=== PATIENT | male | born 1970 | race African-American/Black ===

== ENCOUNTER 2020-04-27 23:31 | Emergency (ER) | payer SELFPAY ==
--- NOTE | 2020-04-27 23:52 | EDM.PDOC ---
<Massimo Don - Last Filed: 04/28/20 07:08> ED HPI GENERAL MEDICAL PROBLEM - General Chief Complaint: Neurological Problem Stated Complaint: DIZZY Time Seen by Provider: 04/27/20 23:49 - History of Present Illness INITIAL COMMENTS - FREE TEXT/NARRATIVE: 49-year-old male presents the emergency room with severe nausea vomiting and dizziness. He had some dizziness that started yesterday this progressively got worst day and now is having pretty significant nausea and vomiting associated with the dizziness. Initially when I saw the patient he was too nauseated and vomiting frequent to really get much of a history from or do an exam on. After he received some Zofran he did notice that when he turns his head to the right it makes his situation much worse. Turning to the left does not seem to cause any difficulty form. The patient has never had an episode like this. Patient denies any significant past medical history. 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 - Related Data Allergies Allergy/AdvReac Type Severity Reaction Status Date / Time No Known Allergies Allergy Verified 04/28/20 00:12 Home Meds: Home Meds . [No Known Home Meds] 04/28/20 [History] ED ROS GENERAL - Review of Systems Review Of Systems: See Below Constitutional: Denies: Fever, Chills HEENT: Reports: Vertigo. Denies: No Symptoms, Ear Pain Respiratory: Reports: No Symptoms Cardiovascular: Reports: No Symptoms Endocrine: Reports: No Symptoms GI/Abdominal: Reports: Nausea, Vomiting. Denies: No Symptoms, Abdominal Pain, Constipation, Diarrhea : Reports: No Symptoms Musculoskeletal: Reports: No Symptoms Skin: Reports: No Symptoms Neurological: Reports: Dizziness. Denies: Headache, Numbness, Syncope, Tremors Psychiatric: Reports: No Symptoms ED EXAM, NEURO - Physical Exam Exam: See Below Exam Limited By: No Limitations General Appearance: Other (Doing much better after receiving Zofran initially he had frequent episodes of small-volume emesis mostly whitish material he did admit to drinking milk before he came in) Eye Exam: Bilateral Eye: Normal Inspection Ears: Normal External Exam, Normal Canal, Hearing Grossly Normal, Normal TMs (Minimal pressure behind the right tympanic membrane), Other (The patient has some discomfort behind the right ear without evidence of swelling or mass and palpation does not seem to make the discomfort worse.) Nose: Normal Inspection, Normal Mucosa, No Blood Throat/Mouth: Normal Inspection, Normal Lips, Normal Teeth, Normal Gums, Normal Oropharynx, Normal Voice, No Airway Compromise Head Exam: Atraumatic, Normocephalic Neck: Normal Inspection, Supple, Non-Tender, Full Range of Motion Respiratory/Chest: No Respiratory Distress, Lungs Clear, Normal Breath Sounds Cardiovascular: Regular Rate, Rhythm, No Edema, No Murmur GI/Abdominal: Normal Bowel Sounds, Soft, Non-Tender Neurological: Alert, No Motor/Sensory Deficits, Oriented x 3 Back Exam: Normal Inspection. No: CVA Tenderness (L), CVA Tenderness (R) Skin Exam: Warm, Dry, Intact Course - Re-Assessments/Exams Free Text/Narrative Re-Assessment/Exam: 04/28/20 02:16 The patient was given some Zofran initially when he came in and this did help some but now he believes the dizziness is getting worse. We will try meclizine. Laboratory evaluation show he is developing a lymphocytosis on his CBC suggestive of a viral type response. Chemistries show a low potassium of 3.1 we will start some IV potassium as I do not believe oral would be tolerated. Other testing such as Hallpike's would not be tolerated at this point. 04/28/20 04:36 Patient thinks he is doing better he is still dizzy but he thinks it is improving 04/28/20 07:09 We attempted to ambulate the patient about 30 minutes ago the patient was unsteady he did make it about 25 feet became fatigued we turned around to the mid back. Immediately after returning he started vomiting. He has had 2 doses of Zofran 2 doses of meclizine we will attempt a low-dose benzodiazepine, lorazepam 0.5 mg IV. The patient has had 3 10 mEq bags of potassium chloride. The fourth is being started at this time. At this time the patient is not ready to go home his diagnosis is still in question. Consider MRI when MRI is available. At this point his change of shift further care and disposition per Dr. Butler. Departure - Departure Disposition: DC/Tfer to [facility] 02 Clinical Impression: Intracranial hemorrhage, Nystagmus, Vertigo Hypertension Qualifiers: Hypertension type: unspecified Qualified Code(s): I10 - Essential (primary) hypertension - Discharge Information Referrals: PCP,None [Primary Care Provider] - Forms: ED Department Discharge <Octavio Butler - Last Filed: 04/28/20 11:20> ED HPI GENERAL MEDICAL PROBLEM Right Posterior Ear Pain Score (Numeric/FACES): 1 Right Lower Abdominal Pain Score (Numeric/FACES): 8 Course - Vital Signs Last Recorded V/S: Last Vital Signs Temp 97.7 F 04/28/20 07:14 Pulse 74 04/28/20 09:47 Resp 16 04/28/20 09:47 BP 160/113 H 04/28/20 09:47 Pulse Ox 95 04/28/20 09:47 - Orders/Labs/Meds Orders: Active Orders 24 hr Category Date Time Status CORONAVIRUS COVID-19 NOEMI [MOLEC] Stat Lab 04/28/20 10:40 Received Sodium Chloride 0.9% [Normal Saline] 1,000 ml Med 04/28/20 02:30 Active IV ASDIRECTED Medication Orders Sodium Chloride (Normal Saline) 1,000 mls @ 100 mls/hr IV ASDIRECTED VIRIDIANA Last Admin: 04/28/20 02:29 Dose: 100 mls/hr Documented by: FIORDALIZA Labs: Laboratory Tests 04/27/20 04/27/20 Range/Units 23:50 23:50 WBC 7.37 (4.23-9.07) K/mm3 RBC 4.85 (4.63-6.08) M/mm3 Hgb 14.8 (13.7-17.5) gm/dl Hct 43.3 (40.1-51.0) % MCV 89.3 (79.0-92.2) fl MCH 30.5 (25.7-32.2) pg MCHC 34.2 (32.2-35.5) g/dl RDW Std Deviation 40.2 (35.1-43.9) fL Plt Count 190 (163-337) K/mm3 MPV 12.7 H (9.4-12.3) fl Neut % (Auto) 25.5 L (34.0-67.9) % Lymph % (Auto) 63.5 H (21.8-53.1) % [place] % (Auto) 9.1 (5.3-12.2) % Eos % (Auto) 1.2 (0.8-7.0) Baso % (Auto) 0.3 (0.1-1.2) % Neut # (Auto) 1.88 (1.78-5.38) K/mm3 Lymph # (Auto) 4.68 H (1.32-3.57) K/mm3 [place] # (Auto) 0.67 (0.30-0.82) K/mm3 Eos # (Auto) 0.09 (0.04-0.54) K/mm3 Baso # (Auto) 0.02 (0.01-0.08) K/mm3 Sodium 139 (136-145) mEq/L Potassium 3.1 L (3.5-5.1) mEq/L Chloride 103 (98-107) mEq/L Carbon Dioxide 25 (21-32) mEq/L Anion Gap 14.1 (5-15) BUN 17 (7-18) mg/dL Creatinine 1.2 (0.7-1.3) mg/dL Est Cr Clr Drug Dosing 71.15 mL/min Estimated GFR (MDRD) > 60 (>60) mL/min BUN/Creatinine Ratio 14.2 (14-18) Glucose 140 H (74-106) mg/dL Calcium 9.2 (8.5-10.1) mg/dL Total Bilirubin 0.3 (0.2-1.0) mg/dL AST 24 (15-37) U/L ALT 23 (16-63) U/L Alkaline Phosphatase 104 (46-116) U/L Total Protein 8.6 H (6.4-8.2) g/dl Albumin 4.3 (3.4-5.0) g/dl Globulin 4.3 gm/dL Albumin/Globulin Ratio 1.0 (1-2) Lipase 194 (73-393) U/L Meds: Medications Generic Name Dose Route Start Last Admin Trade Name Freq PRN Reason Stop Dose Admin Sodium Chloride 1,000 mls @ 100 mls/hr 04/28/20 02:30 04/28/20 02:29 Normal Saline IV 100 mls/hr ASDIRECTED VIRIDIANA Administration Discontinued Medications Generic Name Dose Route Start Last Admin Trade Name Freq PRN Reason Stop Dose Admin Lactated Ringer's 1,000 mls @ 999 mls/hr 04/28/20 00:10 04/28/20 00:16 Ringers, Lactated IV 04/28/20 01:10 999 mls/hr .BOLUS ONE Administration Potassium Chloride 10 meq/ 100 mls @ 100 mls/hr 04/28/20 02:30 04/28/20 07:16 Premix IV 04/28/20 06:29 100 mls/hr Q1H VIRIDIANA Administration Lorazepam 0.5 mg 04/28/20 06:32 04/28/20 06:38 Ativan IVPUSH 04/28/20 06:33 0.5 mg ONETIME ONE Administration Meclizine HCl 25 mg 04/28/20 02:28 04/28/20 02:34 Antivert PO 04/28/20 02:29 25 mg ONETIME ONE Administration Meclizine HCl 25 mg 04/28/20 05:52 04/28/20 05:57 Antivert PO 04/28/20 05:53 25 mg ONETIME ONE Administration Ondansetron HCl 4 mg 04/28/20 00:10 04/28/20 00:16 Zofran IVPUSH 04/28/20 00:11 4 mg ONETIME ONE Administration Ondansetron HCl 4 mg 04/28/20 02:15 04/28/20 02:29 Zofran IVPUSH 04/28/20 02:16 4 mg ONETIME ONE Administration - Re-Assessments/Exams Free Text/Narrative Re-Assessment/Exam: 04/28/20 10:[address] Don. I called to get an MRI and they can do it at 9am. I had PT come evaluate the patient and they do not think he has benign positional vertigo but possibly a neuritis. He would be happy to follow up with him if the MRI is negative. The MRI came back positive for a hemorrhage. He has a focal right temporoparietal cortical laminar hemorrhage without evidence of acute infarct. It is conceivable that the findings may be secondary to venous infarct not involving a dural sinus or focal vasculitis, however, that is not demonstrated with today's imaging. The remainder of brain is normal. Clinical correlation is recommended for any predisposing disease or recent adverse events that may be related to these findings such as hypoglycemia, hypoxia or recent seizure. I talked to the patient and he has no history of abnormal event. He does have horizontal nystagmus when trying to look at me. It appears to go to the left. He has no numbness or weakness. He has normal heal to page but when they tried to get him up earlier he needed help. I called [facility] in [place] but they were full. I called [facility] in [place] and talked with Dr Edward the neurosurgeon vocational rehabilitation consultant and he recommended I talk with [facility] in [place] the patient will need neurovascular assessment. I talked with Dr Salvador and he accepted the patient. He wanted his BP below 140 systolic. I have ordered labetolol 20mg IV. Departure - Departure Time of Disposition: :20 Condition: Serious Sepsis Event Note (ED) - Focused Exam Vital Signs: Vital Signs Temp Pulse Resp BP Pulse Ox 04/28/20 09:47 74 16 160/113 H 95 04/28/20 07:14 97.7 F 95 16 160/100 H 95 04/27/20 23:40 96.6 F L 91 24 H 175/109 H 97 - My Orders Last 24 Hours: My Active Orders 04/28/20 10:40 CORONAVIRUS COVID-19 NOEMI [MOLEC] Stat - Assessment/Plan Last 24 Hours: My Active Orders 04/28/20 10:40 CORONAVIRUS COVID-19 NOEMI [MOLEC] Stat
[2020-04-28] MEDS ORDERED: Lactated Ringers 1,000 ML IV ONE (00:10)
[2020-04-28] MEDS ORDERED: Ondansetron 4 MG/2 ML SDV IVPUSH ONE ×2 (00:10→02:15)
[2020-04-28] MEDS: Potassium Chloride 10 MEQ in Premix Bag 1 BAG IV SCH ×4 (02:29→07:16)
[2020-04-28] MEDS ORDERED: Sodium Chloride 0.9% 1,000 ML IV SCH (02:30)
[2020-04-28] MEDS ORDERED: LORazepam 2 MG/ML SDV IVPUSH ONE (06:32)
--- NOTE | 2020-04-28 08:51 | CT ---
PROCEDURE INFORMATION: Exam: CT Head Without Contrast Exam date and time: 04/28/2020 2:38 AM Age: 49 years old Clinical indication: Dizziness TECHNIQUE: Imaging protocol: Computed tomography of the head without contrast. Radiation optimization: All CT scans at this facility use at least one of these dose optimization techniques: automated exposure control; mA and/or kV adjustment per patient size (includes targeted exams where dose is matched to clinical indication); or iterative reconstruction. COMPARISON: No relevant prior studies available. FINDINGS: Brain: There is vague band- like subtle hyperdensity within the right posterior basal ganglia, possibly reflecting laminar necrosis or cortical calcification. No cerebral hemorrhage. No cerebral edema. No extra-axial collection Cerebral ventricles: Ventricles are midline without obstruction. Bones/joints: The visualized bones are intact without fracture or focal osseous lesion. Paranasal sinuses: Mild right ethmoid sinus opacification . The sinuses are otherwise clear without air-fluid levels. Mastoid air cells: Visualized mastoid air cells are well aerated. Orbital cavity: The visualized intraorbital structures appear unremarkable. Soft tissues: Mild asymmetric thickening of the right temporalis muscle. IMPRESSION: No acute intracranial changes are evident. Vague, bandlike subtle hyperdensity within the right posterior basal ganglia likely reflecting incidental laminar necrosis or cortical calcification. Nonemergent MR may be helpful to further assess if there are no prior studies available for comparison Thank you for allowing us to participate in the care of your patient. Dictated and Authenticated by: Lala Gomez MD 04/28/2020 4:32 AM Central Time ([place] & [place]) RJAI
--- NOTE | 2020-04-28 10:32 | MR ---
PROCEDURE INFORMATION: Exam: MR Head Without Contrast Exam date and time: 04/28/2020 9:17 AM Age: 49 years old Clinical indication: Dizziness TECHNIQUE: Imaging protocol: MR of the head without contrast. COMPARISON: CT Head wo Cont 04/28/2020 2:38 AM FINDINGS: Brain: There is susceptibility artifact indicating the presence of blood products in the area of CT abnormality, specifically along the luciano-white matter boundaries of the right superior temporal lobe approaching the temporoparietal juncture. Signal abnormalities are limited to luciano-white matter boundary and there are no other signal abnormalities elsewhere in the brain. Findings not associated with acute restricted diffusion nor are there are other signal abnormalities elsewhere in the brain. Additionally, no signal abnormalities are noted in any of the dural sinuses or draining cortical veins. Normal brain volume. There are no other foci of susceptibility artifact or T2 hyperintensity. Cerebral ventricles: Normal. No ventriculomegaly. Bones/joints: Unremarkable. Paranasal sinuses: Normal as visualized. No acute sinusitis. Mastoid air cells: Clear. Orbits: Normal. Soft tissues: Unremarkable. Other vasculature: The expected vascular flow voids of the major intracranial vessels including the central dural sinuses are present. IMPRESSION: Focal right temporoparietal cortical laminar hemorrhage without evidence of acute infarct. It is conceivable that the finding may be secondary to venous infarct not involving a dural sinus or focal vasculitis, however, that is not demonstrated with today's imaging. The remainder of the brain is normal. Clinical correlation is recommended for any predisposing disease or recent adverse events that may be related to these findings such as hypoglycemia, hypoxia or recent seizure. Thank you for allowing us to participate in the care of your patient. Dictated and Authenticated by: Oral Machuca MD 04/28/2020 11:22 AM Central Time ([place] & [place]) RAJI
[2020-04-28] MEDS ORDERED: Labetalol 100 MG/20 ML MDV IVPUSH ONE ×2 (11:16→11:42)
== END 2020-04-28 12:10 ==
LOC: JD.ED 23:31
DX: I62.9 Nontraumatic intracranial hemorrhage, unspecified (principal); H55.00 Unspecified nystagmus; I10 Essential (primary) hypertension; Z20.828 Contact with and (suspected) exposure to other viral communicable diseases
CPT/HCPCS: 36415; 70450; 70551; 80053; 83690; 85025; 87635; 96365; 96366; 96375; 96376; 99285; A9270; J2060; J2405; J3480; J3490; J7030; J7120; U0002

== ENCOUNTER 2023-07-18 18:56 | Emergency (ER) | payer MEDICAID, OTHER ==
[2023-07-18] MEDS ORDERED: fentaNYL 100 MCG/2 ML SDV IVPUSH PRN (19:08)
[2023-07-18 19:13] LABS: BASOPHILS PERCENT AUTO 0.8 % (0.0-1.0); EOSINOPHILS ABSOLUTE AUTO 0.1 K/mm3 (0.0-0.4); EOSINOPHILS PERCENT AUTO 1.4 % (0.0-6.0); HEMATOCRIT 44.4 % (42.0-52.0); HEMOGLOBIN 15.2 gm/dl (14.0-18.0); IMMATURE GRAN ABSOLUTE AUTO 0.02 K/mm3 (0.00-0.05); IMMATURE GRAN PERCENT AUTO 0.4 % (0.0-0.4); LYMPHOCYTES ABSOLUTE AUTO 2.6 K/mm3 (1.0-4.8); LYMPHOCYTES PERCENT AUTO 52.3 % (24.0-44.0); MEAN CORPUSCULAR HEMOGLOBIN 31.5 pg (28.0-32.0); MEAN CORPUSCULAR HGB CONC 34.2 g/dl (32.0-36.0); MEAN CORPUSCULAR VOLUME 91.9 fl (83.0-99.0); MEAN PLATELET VOLUME 10.7 fl (9.4-12.4); MONOCYTES ABSOLUTE AUTO 0.6 K/mm3 (0.0-0.8); MONOCYTES PERCENT AUTO 11.2 % (0.0-8.0); NEUTROPHILS ABSOLUTE AUTO 1.7 K/mm3 (1.8-7.7); NEUTROPHILS PERCENT AUTO 33.9 % (41.0-71.0); PLATELET COUNT,PLT 168 K/mm3 (150-400); RED BLOOD CELL COUNT 4.83 M/mm3 (4.52-5.90); WHITE BLOOD CELL COUNT,WBC 4.91 K/mm3 (3.9-11.3)
[2023-07-18] MEDS ORDERED: Sodium Chloride 0.9% 100 ML IV SCH (19:15)
[2023-07-18] MEDS: Sodium Chloride 0.9% 10 ML Syringe FLUSH PRN (19:25)
[2023-07-18] MEDS: Iopamidol 612 MG/ML 100 ML Bottle IVPUSH ONE (19:25)
[2023-07-18] MEDS: Lactated Ringers 1,000 ML IV ONE (19:40)
[2023-07-18 19:45] LABS: ALANINE AMINOTRANSFERASE,ALT 21 U/L (16-63); ALBUMIN 4.2 g/dl (3.4-5.0); ALKALINE PHOSPHATASE 95 U/L (46-116); ASPARTATE AMNIOTRANSFERASE,AST 19 U/L (15-37); BILIRUBIN TOTAL 0.3 mg/dL (0.2-1.0); BLOOD UREA NITROGEN,BUN 14 mg/dL (7-18); BUN/CREATININE RATIO 8.8 (14-18); CALCIUM 9.4 mg/dL (8.5-10.1); CARBON DIOXIDE,CO2 27 mEq/L (21-32); CHLORIDE,CL 101 mEq/L (98-107); CREATINE KINASE,CK 211 U/L (39-308); CREATININE 1.6 mg/dL (0.7-1.3); ESTIMATED GFR 52 mL/min (>60); GLUCOSE RANDOM 125 mg/dL (70-99); PROTEIN TOTAL,TP 8.5 g/dl (6.4-8.2); SODIUM,NA 140 mEq/L (136-145); TROPONIN I HIGH SENSITIVITY 7 pg/mL (<=76)
[2023-07-18] MEDS ORDERED: Naloxone 0.4 MG/ML SDV IVPUSH PRN (20:05)
[2023-07-18 20:10] LABS: APPEARANCE,URINE CLEAR (Clear); BILIRUBIN,URINE NEGATIVE (Negative); COLOR,URINE LIGHT YELLOW (Yellow); GLUCOSE,URINE NEGATIVE (Negative); KETONES,URINE NEGATIVE (Negative); LEUKOCYTE ESTERASE,URINE NEGATIVE (Negative); NITRITE,URINE NEGATIVE (Negative); OCCULT BLOOD,URINE NEGATIVE (Negative); PH,URINE 7.5 (5.0-8.0); PROTEIN,URINE NEGATIVE (Negative); UROBILINOGEN,URINE 0.2 (0.2-1.0)
[2023-07-18 20:20] LABS: BACTERIA,URINE FEW /hpf (FEW); BARBITURATE SCREEN,URINE NEGATIVE (CUTOFF=200); BENZODIAZEPINES SCREEN,URINE NEGATIVE (CUTOFF=150); BUPRENORPHINE SCREEN,URINE NEGATIVE (CUTOFF=10); METHADONE SCREEN, URINE NEGATIVE (CUT0FF=200); METHAMPHETAMINES SCREEN, URINE NEGATIVE (CUTOFF=500); MUCUS,URINE FEW /hpf (FEW); OXYCODONE SCREEN,URINE NEGATIVE (CUT0FF=100); RBC,URINE 0-5 /hpf (0-5); SQUAMOUS EPITHELIAL CELLS,UR 0-5 /hpf (0-5); THC SCREEN,URINE 20 NG/ML NEGATIVE (CUTOFF=50); WBC,URINE 0-5 /hpf (0-5)
[2023-07-18 20:21] LABS: AMPHETAMINES SCREEN, URINE NEGATIVE (CUTOFF=500)
[2023-07-18] MEDS: Morphine 2 MG/ML SYRINGE IVPUSH ONE (20:25)
== END 2023-07-18 20:56 | disposition home or self-care (01) ==
LOC: JD.ED 18:56
DX: S13.4XXA Sprain of ligaments of cervical spine, initial encounter (principal); V89.2XXA Person injured in unspecified motor-vehicle accident, traffic, initial encounter
CPT/HCPCS: 36415; 70450; 71260; 72125; 74177; 80053; 80306; 80307; 81001; 82550; 83605; 84484; 85025; 96374; 99285; J2270; J3490; J7120; Q9967; 99284